=== PATIENT | male | born 1995 | race Caucasian/White ===

== ENCOUNTER 2017-06-18 17:28 | Emergency (ER) | payer OTHER ==
[2017-06-18 18:02] LABS: PLATELET COUNT 250 x10^3mcL (130-400); RED CELL DISTRIBUTION WIDTH 13.8 % (11.5-14.5)
[2017-06-18 18:09] LABS: BASOPHIL % 0 % (0-2)
[2017-06-18 18:10] LABS: CALCIUM 9.3 mg/dL (8.5-10.1); CARBON DIOXIDE 21.6 mmol/L (21-32); CHLORIDE SERUM 107 mmol/L (98-107); GFR1 > 60 mL/min; GLUCOSE SERUM 105 mg/dL (74-106); POTASSIUM SERUM 3.8 mmol/L (3.5-5.1); SODIUM SERUM 141 mmol/L (136-145)
[2017-06-18 18:15] LABS: ALBUMIN 4.3 g/dL (3.4-5.0); ALKALINE PHOSPHATASE 77 U/L (46-116); ALT/SGPT 37 U/L (16-63); AST/SGOT 34 U/L (15-37); BILIRUBIN TOTAL 0.99 mg/dL (0.20-1.00); TOTAL PROTEIN, SERUM 7.8 g/dL (6.4-8.2)
[2017-06-18 18:37] LABS: UA SPECIFIC GRAVITY 1.015 (1.005-1.035); microscopic required? YES; urine erythrocyte NEGATIVE (NEGATIVE)
[2017-06-18 18:47] LABS: AMPHETAMINE QUAL UR NONE DETECTED (NEG <=1000)
[2017-06-18 20:23] VITALS: BP 135/70
== END 2017-06-18 20:23 | disposition home or self-care (01) ==
LOC: ED 17:28
PROVIDERS: Emergency Medicine
DX: E86.0 Dehydration (principal)
CPT/HCPCS: 83880; G0480; J7030; Q0092